=== PATIENT | male | born 1970 | race African-American/Black ===

== ENCOUNTER 2023-12-13 05:55 | Emergency (ER) | payer SELFPAY ==
[2023-12-13 06:01] VITALS: BP 155/104; PULSE 66; RESP 18; TEMP 36.2; O2SAT 99
--- NOTE | 2023-12-13 07:44 | ED.SKABFB ---
HPI - Skin/Abscess/Foreign Bdy General Chief complaint: Skin/Abscess/Foreign Body Stated complaint: possible bite to L forehead Time Seen by Provider: 12/13/23 07:42 Source: patient Mode of arrival: ambulatory Limitations: no limitations History of Present Illness HPI narrative: Patient presents with a red lesion/mass/swelling the started developing 3 days ago on his left forehead. He thinks he might have been bit/stung by an insect but didn't see anything. It has been getting bigger. No fever. He endorses minimal pain, only 1/10 in severity when apply pressure. He states it is intermittently itchy. Patient has a PCP. Confirmed no allergies to antibiotics. No history of MRSA. Related Data Allergies Allergy/AdvReac Type Severity Reaction Status Date / Time No Known Allergies Allergy Verified 12/13/23 05:55 Exam Narrative: GENERAL: Well-appearing, well-nourished, and in no acute distress. HEAD: Normocephalic, atraumatic. EYES: Non injected, non icteric ENT: Nares clear, no rhinorrhea or epistaxis. NECK: Supple. CHEST: Speaking in full sentences. No respiratory distress. HEART: Regular rate and rhythm. . ABDOMEN: Soft, nondistended. EXTREMITIES: Normal range of motion. No lower extremity edema. SKIN: Warm, dry. Raised, slightly erythematous lesion that is warm to the touch located on left forehead. No periorbital involvement. Soft, non indurated. Central area has an area that appears to be initial site but no clearly identifiable stinger/antigen. NEURO: No focal deficits. Alert and oriented x3. PSYCH: Normal mood and affect. Course Vital Signs Vital signs: Vital Signs Temperature 97.2 F L 12/13/23 06:01 Pulse Rate 66 12/13/23 06:01 Respiratory Rate 18 12/13/23 06:01 Blood Pressure 155/104 H 12/13/23 06:01 Pulse Oximetry 99 12/13/23 06:01 Oxygen Delivery Room Air 12/13/23 06:01 Temperature 97.6 F 12/13/23 08:49 Pulse Rate 63 12/13/23 08:49 Respiratory Rate 18 12/13/23 08:49 Blood Pressure 144/98 H 12/13/23 08:49 Pulse Oximetry 96 12/13/23 08:49 Oxygen Delivery Room Air 12/13/23 06:01 MDM - Skin/Abscess/Foreign Bdy MDM Narrative Medical decision making narrative: 53yo presents with growing red, swollen lesion on left forehead, increasing in size over the past 3 days. In the ED he is afebrile with VS notable for hypertension. Lesion does appear to be inflamed and likely infected given erythema and warmth to the touch. Not quite indurated to suspect abscess formation thus nothing to I&D. Patient given first dose of antibiotic in the ED and discharged with course of antibiotic. Discussed return precautions. Stable for discharge. Differential Diagnosis Differential diagnosis: Likely abscess of skin or subcutaneous tissue, herpes zoster, cellulitis, insect bites, impetigo, contact dermatitis and other (localized allergic reaction. Pott's Puffy Tumor) Discharge Plan Discharge Clinical Impression: Abscess or cellulitis of forehead Patient Disposition: Home, Self-Care Condition: Stable Instructions: Antibiotic Form, Cellulitis (ED) Additional Instructions: as we discussed, this appears to be infection known as cellulitis but it is not quite an abscess amenable to incision and drainage. antibiotics should work to penetrate this. follow-up with primary care physician or return to the emergency department or urgent care with any new or worsening symptoms as it may require either brought into antibiotics or incision and drainage if not improving. Prescriptions: New cephalexin 500 mg capsule 500 mg PO Q6H 5 Days Qty: 19 0RF Rx Instructions: first dose received in ED 12/12 at approx 08:30am Follow-up/Referrals: PHYSICIAN,[employer] EXAMINER [Non-Staff] - Stand Alone Forms: Work/School Release IP Time of Disposition: 08:29
[2023-12-13] MEDS: CEPHALEXIN 500 MG CAPSULE PO (08:39)
[2023-12-13 08:49] VITALS: BP 144/98; PULSE 63; RESP 18; TEMP 36.4; O2SAT 96
== END 2023-12-13 08:50 | disposition home or self-care (01) ==
PROVIDERS: Emergency Provider Student in an Organized Health Care Education/Training Program
DX: L02.01 Cutaneous abscess of face (principal)
CPT/HCPCS: 99283; A9270